=== PATIENT | male | born 1990 | race Caucasian/White ===

== ENCOUNTER → 2019-01-31 | Outpatient (CLI) | payer BC ==
--- NOTE | 2019-01-31 16:35 | PCVCIMAG ---
APPROVED REPORT Study performed: 01/31/2019 14:18:27 EXAM: Comprehensive 2D, Doppler, and color-flow Echocardiogram Patient Location: Echo lab [facility] BSA: 2.26 HR: 78 bpmBP: 144/70 mmHg Rhythm: NSR Other Information Study Quality: Good Risk Factors: Cardiac Risk Factors: HTN, Hyperlipidemia Indications Dyspnea Hypertension/HDD 2D Dimensions IVSd: 8.12 (7-11mm)LVOT Diam: 24.96 (18-24mm) LVDd: 47.45 mm PWd: 9.20 (7-11mm)Ascending Ao: 28.91 (22-36mm) LVDs: 29.55 (25-40mm) Left Atrium: 35.42 (27-40mm) Aortic Root: 30.69 mm LV Single Plane 4CH: 67.52 % LV Single Plane 2CH: 67.20 % Biplane EF: 68.3 % Volumes Left Atrial Volume (Systole) Single Plane 4CH: 51.95 mLSingle Plane 2CH: 47.42 mL Biplane LA Volume: 53.00 mLLA ESV Index: 23.00 mL/m2 Aortic Valve AoV Peak Mark.: 1.44 m/s AO Peak Gr.: 8.30 mmHgLVOT Max P.46 mmHg LVOT Max V: 0.78 m/s DOROTHEA Vmax: 2.66 cm2 Mitral Valve E/A Ratio: 2.3 MV Decel. Time: 228.79 ms MV E Max Mark.: 0.89 m/s MV A Mark.: 0.39 m/s IVRT: 76.12 ms TDI E/Lateral E': 5.93E/Medial E': 6.85 Medial E' Mark.: 0.13 m/s Lateral E' Mark.: 0.15 m/s Pulmonary Valve PV Peak Mark.: 1.13 m/sPV Peak Gr.: 5.14 mmHg Pulmonary Vein P Vein S: 0.74 m/sP Vein A: 0.31 m/s P Vein D: 0.58 m/sP Vein A Dur.: 65.7 msec P Vein S/D Ratio: 1.28 Tricuspid Valve TR Peak Mark.: 1.98 m/s TR Peak Gr.: 15.64 mmHg TV Vmax: 0.82 m/sPA Pressure: 23.00 mmHg Left Ventricle The left ventricle is normal size. There is normal LV segmental wall motion. There is normal left ventricular wall thickness. Left ventricular systolic function is normal. The left ventricular ejection fraction is within the normal range. LVEF is 65-70%. The left ventricular diastolic function is normal. Right Ventricle The right ventricle is normal size. The right ventricular systolic function is normal. Atria The left atrium size is normal. The right atrium size is normal. Aortic Valve Aortic valve is trileaflet. The aortic valve is normal in structure. No aortic regurgitation is present. There is no aortic valvular stenosis. Mitral Valve The mitral valve is normal in structure. Trace mitral regurgitation. No evidence of mitral valve stenosis. Tricuspid Valve The tricuspid valve is normal in structure. Trace tricuspid regurgitation with a PA pressure of 23 mmHg. No pulmonary hypertension. Pulmonic Valve The pulmonary valve is normal in structure. There is no pulmonic valvular regurgitation. Great Vessels The aortic root is normal in size. The ascending aorta is normal in size. Aortic arch is normal in caliber. IVC is normal in size and collapses >50% with inspiration. Pericardium There is no pericardial effusion. There is no pleural effusion. <Conclusion> The left ventricle is normal size. LVEF is 65-70%. The left ventricular diastolic function is normal. The right ventricle is normal size. The left atrium size is normal. Aortic valve is trileaflet. The aortic valve is normal in structure. Trace mitral regurgitation. Trace tricuspid regurgitation with a PA pressure of 23 mmHg. No pulmonary hypertension. The aortic root is normal in size. There is no pericardial effusion.
--- NOTE | 2019-02-04 18:09 | PCVCIMAG ---
APPROVED REPORT Patient Location: Echo lab-[facility] Room #: 1 Stress Nurse: Mikala Bryant RN Indications: Hypertension, family hx sudden The patient exercised according to the CHUY protocol for11:01 mins; achieving a work level of 13.7 METS. The resting heart rate of77 bpm otilia to a maximum heart rate of 200 bpm. This value represent 103% of the maximal, age-predicted heart rate. The resting blood pressure of 144/70 mmHg, otilia to a maximum blood pressure of 186/78 mmHg. The exercise test was stopped due to fatigue . Conclusion #1 is associated fatigue shortness of breath no production of chest pain or any symptoms was elicited. #2 equivocal EKG changes are noted with baseline abnormalities. No significant ectopy. #3 good exercise tolerance with an appropriate hemodynamic response Impression negative treadmill stress test for ischemia or significant ectopy exhibiting appropriate hemodynamic response recommend clinical correlation
== END | disposition home or self-care (01) ==
LOC: PCVCIMAG 13:53
PROVIDERS: ATTEND Internal Medicine Cardiovascular Disease
DX: I10 Essential (primary) hypertension (principal); R06.09 Other forms of dyspnea
CPT/HCPCS: 93017; 93306